=== PATIENT | female | born 1985 | race Two or more races ===

== ENCOUNTER 2024-09-27 05:30 | Inpatient (IN) | payer OTHER ==
[2024-09-17 09:50] LABS: HEMATOCRIT 35.8 % (36.0-45.00); HEMOGLOBIN 12.1 g/dL (12.0-15.00); MEAN CELL VOLUME 80.7 fL (80.00-100.00); MEAN CORPUSCULAR HEMOGLOBIN 27.3 pg (27.00-32.0); MEAN CORPUSCULAR HGB CONC 33.9 g/dl (32.0-36.0); PLATELET COUNT 310 K/uL (150-450); RED BLOOD COUNT 4.44 M/uL (4.00-6.00); RED CELL DISTRIBUTION WIDTH 12.7 % (11.5-14.5)
[2024-09-17 10:01] LABS: PARTIAL THROMBOPLASTIN TIME 31.3 SECONDS (22.0-34.0); PROTHROMBIN TIME 10.9 SECONDS (9.0-11.5)
[2024-09-17 10:28] LABS: URINE APPEARANCE Clear; URINE BILIRRUBIN Negative (NEGATIVE); URINE BLOOD Negative; URINE COLOR Yellow; URINE GLUCOSE Negative (NEGATIVE); URINE KETONE Negative (NEGATIVE); URINE LEUKOCYTE Negative; URINE NITRATE Negative; URINE PROTEIN Negative (NEGATIVE); URINE UROBILINOGEN 0.2 E.U./dl
[2024-09-17 10:32] LABS: URINE EPITHELIAL CELLS 8.3 uL (0.0-38.8); URINE RBC 7.6 uL (0.0-20.8)
[2024-09-17 10:35] LABS: URINE CAST 0.15 uL (0.0-1.40)
[2024-09-17 10:37] LABS: ALBUMIN 3.8 gm/dL (3.4-5.0); BILIRUBIN TOTAL 0.47 mg/dL (0.3-1.2); CALCIUM 8.9 mg/dL (8.5-10.1); CREATININE SERUM 0.64 mg/dL (0.55-1.02); GFR 102.26; GLOBULINA 4.3 G/DL (2.4-3.5); POTASSIUM 3.83 mEq/L (3.5-5.1); TOTAL PROTEIN 8.1 gm/dL (6.4-8.2)
[~2024-09-27 05:30] MED LIST: LOSARTAN POTASS50 MG
[2024-09-27] MEDS ORDERED: CEFAZOLIN SODIUM 1,000 MG VIAL IV ONE (12:30)
[2024-09-27] MEDS ORDERED: DEXAMETHASONE 4 MG TABLET PO ONE (12:30)
[2024-09-27] MEDS ORDERED: MORPHINE SULFATE 4 MG/ML VIAL IV ONE ×2 (14:00→14:30)
[2024-09-27] MEDS ORDERED: ENALAPRILAT DIHYDRATE 1.25 MG/ML VIAL IV PRN (15:45)
[2024-09-27] MEDS ORDERED: ONDANSETRON HCL 2 MG/ML VIAL IV PRN (15:45)
[2024-09-27] MEDS ORDERED: CYCLOBENZAPRINE HCL 5 MG TABLET PO SCH (17:00)
[2024-09-27] MEDS ORDERED: ACETAMINOPHEN 500 MG GEL..CAP PO SCH (17:00)
[2024-09-27] MEDS ORDERED: TRAMADOL HCL 50 MG TABLET PO SCH (17:00)
[2024-09-27 18:45] VITALS: BP 111/74; O2SAT 95
[2024-09-27] MEDS ORDERED: PANTOPRAZOLE SODIUM 40 MG/VIAL VIAL IV PUSH SCH (21:00)
[2024-09-28] VITALS: BP 97/61; O2SAT 95
[2024-09-28 08:17] VITALS: BP 107/63; O2SAT 100
== END 2024-09-28 14:14 | disposition home or self-care (01) | DRG 627 ==
LOC: CIR.AMB 05:30 → SURH 15:57 → O/R 15:57 → SURH 20:27
PROVIDERS: ADMIT Surgery; ATTEND Surgery
PROC: 0GTG0ZZ Resection of Left Thyroid Gland Lobe, Open Approach (ICD-10-PCS; principal; 2024-09-27 12:20)
DX: E04.1 Nontoxic single thyroid nodule (principal); Z20.822 Contact with and (suspected) exposure to COVID-19